=== PATIENT | female | born 2000 | race Caucasian/White ===

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

== ENCOUNTER 2018-10-09 15:08 | Emergency (ER) | payer SELFPAY ==
[2018-10-09] MEDS ORDERED: ONDANSETRON 4 MG/2 ML VIAL IVPB ONE (15:28)
[2018-10-09] MEDS ORDERED: SODIUM CHLORIDE 1,000 ML IV STA (15:29)
[2018-10-09] MEDS ORDERED: ACETAMINOPHEN 1000 MG/100 ML VIAL (NON FORMULARY) IVPB ONE (15:29)
--- NOTE | 2018-10-09 15:39 | PDOC ---
History of Present Illness - General Chief Complaint: Nausea/Vomiting Stated Complaint: NAUSEA,VOMITING Time Seen by Provider: 10/09/18 15:15 - History of Present Illness Initial Comments: 10/09/18 15:34 18 yo F with h/o anxiety who p/w sore throat, vomiting. Patient reports 1 week of progressively, sore throat, and odynophagia. Denies dysphagia, drooling, hoarseness/muffled voice. Pain not improved with honey. Denies losenges, or oral analgesia. Endorses 1 day of non bilious, non bloody emesis x 4. No identifiable triggers or alleviators. + intermittent lightheadedness. Reports RLQ abdominal pain 9 months ago, with nml TVUS. No ovarian cysts or torsion. Perfomed at [facility]. Patient denies F/C, CP, SOB, cough, wheezing, palpitations, urinary complaints , vaginal bleeding/itching/burning, pelvic pain, hematuria, abdominal pain, diarrhea, constipation, BPR, weakness, sensory changes. Patient denies N/V, F,C, CP, SOB, urinary complaints, abdominal pain, diarrhea, constipation, lightheadedness, weakness, sensory changes. PMHx: as noted above. Denies medication use. Surgical Hx: Denies h/o abdominal surgery ROS: as noted SHx: Denies Etoh, IVDA, tobacco use. Recent sick contact sibling viral URI. Allergies: NKDA Past History - Past Medical History Allergies/Adverse Reactions: Allergies Allergy/AdvReac Type Severity Reaction Status Date / Time No Known Allergies Allergy Verified 10/09/18 15:09 Home Medications: Ambulatory Orders Clonazepam [Klonopin] 1 mg PO DAILY 10/09/18 Ondansetron HCl [Zofran] 4 mg PO BID PRN #10 tablet MDD 2 tab 10/09/18 Ondansetron HCl [Zofran] 4 mg PO PRN PRN #10 tablet MDD 2 tab 10/09/18 Asthma: No Cancer: No Cardiac Disorders: No Diabetes: No HTN: No Seizures: No Thyroid Disease: No - Immunization History Immunization Up to Date: Yes - Suicide/Smoking/Psychosocial Hx Smoking Status: No Smoking History: Never smoked Have you smoked in the past 12 months: No Number of Cigarettes Smoked Daily: 0 Hx Alcohol Use: No Drug/Substance Use Hx: No Substance Use Type: None Hx Substance Use Treatment: No Review of Systems - Review of Systems Comments:: 10/09/18 15:39 GENERAL/CONSTITUTIONAL: No fever or chills. No weakness. HEAD, EYES, EARS, NOSE AND THROAT: + Sore throat. No change in vision. No ear pain or discharge. CARDIOVASCULAR: No chest pain or shortness of breath RESPIRATORY: No cough, wheezing, or hemoptysis. GASTROINTESTINAL: + nausea, vomiting. No diarrhea or constipation. GENITOURINARY: No dysuria, frequency, or change in urination. MUSCULOSKELETAL: No joint or muscle swelling or pain. No neck or back pain. SKIN: No rash NEUROLOGIC: + lightheadedness. No headache, vertigo, loss of consciousness, or change in strength/sensation. ENDOCRINE: No increased thirst. No abnormal weight change HEMATOLOGIC/LYMPHATIC: No anemia, easy bleeding, or history of blood clots. ALLERGIC/IMMUNOLOGIC: No hives or skin allergy. *Physical Exam - Physical Exam Comments: 10/09/18 15:40 GENERAL: Awake, alert, and fully oriented, in no acute distress HEAD: No signs of trauma, normocephalic, atraumatic EYES: PERRLA, EOMI, sclera anicteric, conjunctiva clear ENT: + dry muocus membranes. Ertyhematous posterior oropharynx, with absent exudates, cervical adnopathy, Auricles normal inspection, hearing grossly normal , nares patent. NECK: Normal ROM, supple, no lymphadenopathy, JVD, or masses LUNGS: No distress, speaks full sentences, clear to auscultation bilaterally HEART: Regular rate and rhythm, normal S1 and S2, no murmurs, rubs or gallops, peripheral pulses normal and equal bilaterally. ABDOMEN: + RLQ>RUQ abdominal ttp. Soft, NDS, normoactive bowel sounds. No guarding, no rebound. No masses. Neg CVA ttp. PELVIC: Normal appearing external genitalia, with absent lesions. Vaginal vault with absent blood, discharge. Cervical os closed, with absent discharge. Neg CMT on BM. EXTREMITIES : Normal inspection, Normal range of motion, no edema. No clubbing or cyanosis. NEUROLOGICAL: Cranial nerves II through XII grossly intact. Normal speech, normal gait, no focal sensorimotor deficits SKIN: Warm, Dry, normal turgor, no rashes or lesions noted ED Treatment Course - LABORATORY CBC & Chemistry Diagram: 10/09/18 16:18 10/09/18 16:18 Medical Decision Making - Medical Decision Making 10/09/18 15:38 18 yo F with h/o anxiety who p/w sore throat, vomiting.Vitals wnl, AF, A&Ox3. + dry muocus membranes. Ertyhematous posterior oropharynx, with absent exudates. + RLQ> RUQ ttp. Will asses for . Will consider cystitis, ovarian pathology, nephrolithaisis/obstructive uropathy, appendicitis, colitis, biliary dz., gastritis, esophagitis, gastroenteritis. Low suspicion pyelonephritis. Differential also includes strep pharyngitis, viral URI. Low suspicion PNA. Will provide adequate fluid resuscitation, analgesia, and reassess. ED Course: 10/09/18 16:40 UA: Neg HCG: Neg WBC: 12.3 10/09/18 17:15 CMP: Unremarkable TVUS ~ R/o Torsion 10/09/18 18:25 Left ovarian cyst 1.9 cm with internal debris. Patient pain improved Tolerating PO intake. Stable for d/c with return precautions. *DC/Admit/Observation/Transfer Diagnosis at time of Disposition: RLQ abdominal pain - Discharge Dispostion Condition at time of disposition: Stable Decision to Admit order: No - Referrals - Patient Instructions Printed Discharge Instructions: DI for Vomiting -- Adult Additional Instructions: Please return to the emergency department with any new or worsening symptoms or concerns. Please follow up with your primary care physician within 72 hours. - Post Discharge Activity - Attestations Physician Attestion: 10/09/18 16:06 I attest to the information provided in this note.
[2018-10-09 15:52] VITALS: BP 139/97; PULSE 92; TEMP 98.7; BMI 29.2
--- NOTE | 2018-10-09 15:59 | PDOC ---
Attending Attestation - Resident Resident Name: MiquelBrandon - ED Attending Attestation I have performed the following: I have examined & evaluated the patient, The case was reviewed & discussed with the resident, I agree w/resident's findings & plan, Exceptions are as noted - HPI HPI: 10/09/18 15:53 This is a 18 yo F with h/o anxiety who p/w sore throat, nausea and vomiting. Pt has had 1 week of progressively worsening sore throat. Pt has had 1 day of non bilious, non bloody emesis x 4. Since the of her child, she has had intermittent pelvic/abdominal pain which worsens with sexual intercourse No vaginal discharge She was seen by transition manager who did an U/S which was reportedly nml. No fevers or chills - Physicial Exam PE: 10/09/18 15:54 GENERAL: The patient is in no acute distress. EYES: PERRLA, EOMI, sclera anicteric, conjunctiva clear. ENT: Ears normal, nares patent, oropharynx clear without exudates. Moist mucous membranes. NECK: Normal range of motion, supple LUNGS: Breath sounds equal, clear to auscultation bilaterally. No wheezes, and no crackles. HEART:Regular rate and rhythm, normal S1 and S2 without murmur, rub or gallop. ABDOMEN: Soft, RUQ and RLQ tenderness, no abdominal distention EXTREMITIES: Normal range of motion, no edema. NEUROLOGICAL: Cranial nerves II through XII grossly intact. Normal speech. No focal neurological deficits. MUSCULOSKELETAL: Back non-tender to palpation, no CVA tenderness SKIN: Warm, Dry, normal turgor, no rashes or lesions noted. - Medical Decision Making 10/09/18 15:54 Will do: Labs 10/09/18 19:07 Laboratory Tests 10/09/18 10/09/18 10/09/18 16:17 16:18 16:18 WBC Hgb Hct Plt Count BUN Creatinine Lipase 111 Urine Blood Negative Urine Nitrite Negative Ur Leukocyte Esterase Negative Urine HCG, Qual Negative Group A Strep Rapid Negative 10/09/18 10/09/18 16:18 16:18 WBC 12.3 H Hgb 11.5 Hct 35.9 Plt Count 337 BUN 9 Creatinine 0.6 Lipase Urine Blood Urine Nitrite Ur Leukocyte Esterase Urine HCG, Qual Group A Strep Rapid TV US: Left ovarian cyst, no free fluid Will discharge to home Pt to follow up with transition manager for further management of pelvic pain( ?endometriosis?? )
[2018-10-09] MEDS ORDERED: ONDANSETRON 4 MG/2 ML VIAL ONE (16:23)
[2018-10-09] MEDS ORDERED: ACETAMINOPHEN INJECTION 100 ML IVPB ONE (16:23)
[2018-10-09 16:31] LABS: HCG,QUALITATIVE URINE Negative; PH,URINE 8.5 (4.5-8); URINE APPEARANCE Clear; URINE BILIRUBIN Negative (NEGATIVE); URINE COLOR Yellow; URINE GLUCOSE (UA) Negative (NEGATIVE); URINE KETONE Negative (NEGATIVE); URINE LEUK ESTERASE Negative (NEGATIVE); URINE NITRITE Negative (NEGATIVE); URINE PROTEIN Negative (NEGATIVE); URINE UROBILINOGEN 0.2 (0.2-1.0)
[2018-10-09 16:35] LABS: BASO % 0.4 % (0-2.0); EOS % 0.8 % (0-4.5); HEMATOCRIT 35.9 % (32.4-45.2); HEMOGLOBIN 11.5 GM/dl (10.7-15.3); LYMPH % 9.4 % (8-40); MCH 22.2 pg (25.7-33.7); MEAN CELL VOLUME 69.5 fl (80-96); MEAN PLT VOLUME 8.2 fl (7.5-11.1); MONO % 7.4 % (3.8-10.2); PLATELET COUNT 337 K/MM3 (134-434); RBC 5.17 M/mm3 (3.60-5.2); RDW 14.1 % (11.6-15.6); WHITE BLOOD COUNT 12.3 K/mm3 (4.0-10.8)
[2018-10-09 16:38] LABS: ADD RBC MORPHOLOGY YES
[2018-10-09 16:47] LABS: ALBUMIN 4.3 g/dl (3.4-5.0); ALK PHOS 71 U/L (45-117); ANION GAP 6 MMOL/L (8-16); BILIRUBIN,TOTAL 0.8 mg/dl (0.2-1); BLOOD UREA NITROGEN 9 mg/dl (7-18); CALCIUM 8.9 mg/dl (8.5-10); CHLORIDE 103 mmol/L (98-107); CO2 24 mmol/L (21-32); CREATININE 0.6 mg/dl (0.55-1.3); GLUCOSE,RANDOM 84 mg/dl (74-106); POTASSIUM 3.6 mmol/L (3.5-5.1); SGOT/AST 22 U/L (15-37); SGPT/ALT 20 U/L (13-61); SODIUM 133 mmol/L (136-145); TOT PROT 7.4 g/dl (6.4-8.2)
[2018-10-09 20:48] LABS: PLATELET ESTIMATE ADEQUATE
== END 2018-10-09 18:58 | disposition home or self-care (01) ==
LOC: FER 15:08
PROC: 3E033NZ Introduction of Analgesics, Hypnotics, Sedatives into Peripheral Vein, Percutaneous Approach (ICD-10-PCS; principal; 2018-10-09)
PROC: 3E0337Z Introduction of Electrolytic and Water Balance Substance into Peripheral Vein, Percutaneous Approach (ICD-10-PCS; 2018-10-09)
PROC: 3E033GC Introduction of Other Therapeutic Substance into Peripheral Vein, Percutaneous Approach (ICD-10-PCS; 2018-10-09)
DX: R10.31 Right lower quadrant pain (principal); R11.2 Nausea with vomiting, unspecified; N83.202 Unspecified ovarian cyst, left side; F41.9 Anxiety disorder, unspecified
CPT/HCPCS: 36415; 76830-TC; 80053; 81003; 83690; 84703; 85025; 87070; 87077; 87880; 99283-25; J0131; J7030

== ENCOUNTER 2018-10-11 06:47 | Emergency (ER) | payer OTHER ==
[2018-10-11 06:51] VITALS: BMI 29.2
--- NOTE | 2018-10-11 07:04 | PDOC ---
History of Present Illness - General Chief Complaint: Nausea/Vomiting Stated Complaint: FEVER Time Seen by Provider: 10/11/18 07:04 History Source: Patient Exam Limitations: No Limitations - History of Present Illness Initial Comments: 10/11/18 08:03 Pt presents to the ED complaining of a 4 day history of generalized myalgias, sore throat, nasal congestion and runny nose. Also complains of nausea and intermittent non bloody, non billious vomiting. Presented to the ED 3 days ago for same complaint, had rapid strep performed that was negative. Last night, she developed fever. States that she has been unable to tolerate antipyretics or fluids. Denies dysuria or abdominal pain. Does complain of mild bitemporal headache that is worse when moving her head. Denies cough or shortness of breath. Denies rashes. Denies sick contacts. 10/11/18 08:07 10/11/18 08:07 PMH significant only for irritable bowel syndrome. Past History - Past Medical History Allergies/Adverse Reactions: Allergies Allergy/AdvReac Type Severity Reaction Status Date / Time No Known Allergies Allergy Verified 10/11/18 06:47 Home Medications: Ambulatory Orders Clonazepam [Klonopin] 1 mg PO DAILY 10/09/18 Ondansetron HCl [Zofran] 4 mg PO BID PRN #10 tablet MDD 2 tab 10/09/18 Ondansetron HCl [Zofran] 4 mg PO PRN PRN #10 tablet MDD 2 tab 10/09/18 Ondansetron [Zofran Odt -] 4 mg SL TID PRN #8 od.tablet 10/11/18 Asthma: No Cancer: No Cardiac Disorders: No COPD: No Diabetes: No GI Disorders: Yes (IBS) HTN: No Seizures: No Thyroid Disease: No - Immunization History Immunization Up to Date: Yes - Suicide/Smoking/Psychosocial Hx Smoking Status: No Smoking History: Never smoked Have you smoked in the past 12 months: No Number of Cigarettes Smoked Daily: 0 Information on smoking cessation initiated: No Hx Alcohol Use: No Drug/Substance Use Hx: No Substance Use Type: None Hx Substance Use Treatment: No Review of Systems - Review of Systems Able to Perform ROS?: Yes Is the patient limited Swiss proficient: No Constitutional: Yes: Fever, Loss of Appetite, Malaise, Weakness HEENTM: Yes: Throat Pain. No: Eye Pain, Blurred Vision, Tearing, Recent change in vision, Double Vision, Cataracts, Ear Pain, Ocular Prothesis, Ear Discharge, Nose Pain, Nose Congestion, Tinnitus, Nose Bleeding, Hearing Loss, Throat Swelling, Mouth Pain, Dental Problems, Difficulty Swallowing, Mouth Swelling, Other Respiratory: No: Symptoms reported, See HPI, Cough, Orthopnea, Shortness of Breath, SOB with Exertion, SOB at Rest, Stridor, Wheezing, Productive cough, Hemoptysis, Other Cardiac (ROS): Yes: Lightheadedness. No: Symptoms Reported, See HPI, Chest Pain , Edema, Irregular Heart Rate, Palpitations, Syncope, Chest Tightness, Other ABD/GI: Yes: Nausea, Vomiting. No: Abdominal Distended, Abd. Pain w/ defecation , Blood Streaked Bowels, Constipated, Diarrhea, Difficulty Swallowing, Poor Appetite, Poor Fluid Intake, Rectal Bleeding, Indigestion, Abdominal cramping, Tarry Stools, Other : No: Burning, Dysuria, Discharge, Frequency, Flank Pain, Hematuria, Incontinence, Pain, Urgency, Lesions, Other Musculoskeletal: Yes: Muscle Pain Integumentary: No: Bruising, Change in Color, Change in Hair/Nails, Dryness, Erythema, Flushing, Lesions, Lumps, Pallor, Pruritus, Rash Neurological: Yes: Headache, Dizziness. No: Numbness, Paresthesia, Pre- Existing Deficit, Seizure, Tingling, Tremors, Weakness, Unsteady Gait, Ataxia, Other *Physical Exam - Vital Signs Last Vital Signs Temp Pulse Resp BP Pulse Ox 100.3 F H 151 H 20 120/75 98 10/11/18 06:48 10/11/18 06:48 10/11/18 06:48 10/11/18 06:48 10/11/18 06:48 - Physical Exam General Appearance: Yes: Nourished, Appropriately Dressed HEENT: positive: Normal ENT Inspection, TMs Normal, Pharynx Normal Neck: positive: Supple Respiratory/Chest: positive: Lungs Clear, Normal Breath Sounds Cardiovascular: positive: Regular Rate, Tachycardia Gastrointestinal/Abdominal: positive: Flat, Soft Musculoskeletal: positive: Normal Inspection Extremity: positive: Normal Inspection, Normal Range of Motion Integumentary: positive: Normal Color, Dry, Warm Neurologic: positive: Fully Oriented, Alert, Normal Mood/Affect Moderate Sedation - Procedure Monitoring Vital Signs: Procedure Monitoring Vital Signs Temperature 100.3 F H 10/11/18 06:48 Pulse Rate 151 H 10/11/18 06:48 Respiratory Rate 20 10/11/18 06:48 Blood Pressure 120/75 10/11/18 06:48 O2 Sat by Pulse Oximetry (%) 98 10/11/18 06:48 ED Treatment Course - LABORATORY CBC & Chemistry Diagram: 10/11/18 07:25 10/11/18 07:25 Medical Decision Making - Medical Decision Making 10/11/18 08:11 Pt presents to the ED complaining of 4 days of myalgias and sore throat and one day of fever. Tachycardia improved after arrival to 124. Patient is well appearing but appears mildly dehydrated. Most likely viral syndrome. Will give IV fluids, fever and nausea control and check labs. Will consider discharge home if symptoms improve. 10/11/18 09:24 Pt feels improved after IV hydration. Will discharge home with rx for zofran odt and instructions to return if symptoms become worse. *DC/Admit/Observation/Transfer Diagnosis at time of Disposition: Dehydration, Viral syndrome - Discharge Dispostion Disposition: HOME Condition at time of disposition: Good Decision to Admit order: No - Prescriptions Prescriptions: Ondansetron [Zofran Odt -] 4 mg SL TID PRN #8 od.tablet PRN Reason: Nausea - Referrals - Patient Instructions Printed Discharge Instructions: DI for Viral Syndrome Additional Instructions: You came to the ED for body aches, headache and sore throat, which are most likely caused by a virus. You should get plenty of fluids and rest. You can take motrin or tylenol for the pain and fever. You should follow up with your doctor on Sunday if your symptoms have not resolved. You should return immediately to the ED for severe headache, severe nausea, vomiting and dehydration unable to keep liquids down, severe abdominal pain, other new or worsening symptoms. - Post Discharge Activity
[2018-10-11] MEDS ORDERED: SODIUM CHLORIDE 0.9% 500 ML INFUS.BAG IV ONE ×2 (07:05→07:40)
[2018-10-11] MEDS ORDERED: ACETAMINOPHEN 325 MG TABLET (FP) PO ONE (07:06)
[2018-10-11] MEDS ORDERED: ACETAMINOPHEN 1000 MG/100 ML VIAL (NON FORMULARY) IVPB ONE (07:07)
[2018-10-11] MEDS ORDERED: ONDANSETRON 4 MG/2 ML VIAL ONE (07:08)
[2018-10-11] MEDS ORDERED: ACETAMINOPHEN INJECTION 100 ML IVPB ONE (07:08)
[2018-10-11] MEDS ORDERED: ONDANSETRON 4 MG/2 ML VIAL IVPUSH ONE (07:08)
[2018-10-11 07:32] LABS: BASO % 0.3 % (0-2.0); EOS % 0.4 % (0-4.5); HEMATOCRIT 33.4 % (32.4-45.2); HEMOGLOBIN 10.8 GM/dl (10.7-15.3); LYMPH % 4.3 % (8-40); MCH 22.6 pg (25.7-33.7); MCHC 32.4 g/dl (32.0-36.0); MEAN CELL VOLUME 69.7 fl (80-96); MEAN PLT VOLUME 8.2 fl (7.5-11.1); MONO % 7.7 % (3.8-10.2); NEUT % 87.3 % (42.8-82.8); PLATELET COUNT 309 K/MM3 (134-434); RDW 13.7 % (11.6-15.6); WHITE BLOOD COUNT 13.7 K/mm3 (4.0-10.8)
[2018-10-11 08:03] LABS: PH,URINE 8.5 (4.5-8); URINE APPEARANCE Clear; URINE BILIRUBIN Negative (NEGATIVE); URINE COLOR Yellow; URINE GLUCOSE (UA) Negative (NEGATIVE); URINE KETONE Negative (NEGATIVE); URINE LEUK ESTERASE Negative (NEGATIVE); URINE NITRITE Negative (NEGATIVE); URINE PROTEIN Trace (NEGATIVE)
[2018-10-11 08:14] LABS: ALBUMIN 4.1 g/dl (3.4-5.0); ALK PHOS 72 U/L (45-117); ANION GAP 11 MMOL/L (8-16); BILIRUBIN,TOTAL 0.8 mg/dl (0.2-1); BLOOD UREA NITROGEN 7 mg/dl (7-18); CALCIUM 9.1 mg/dl (8.5-10); CHLORIDE 100 mmol/L (98-107); CO2 23 mmol/L (21-32); CREATININE 0.7 mg/dl (0.55-1.3); GLUCOSE,RANDOM 127 mg/dl (74-106); POTASSIUM 4.1 mmol/L (3.5-5.1); SGOT/AST 26 U/L (15-37); SGPT/ALT 21 U/L (13-61); SODIUM 134 mmol/L (136-145); TOT PROT 7.5 g/dl (6.4-8.2)
[2018-10-11 09:35] VITALS: BP 100/62; PULSE 105; TEMP 98.3
[2018-10-11] MEDS ORDERED: IBUPROFEN 600 MG TABLET (FP) PO ONE ×2 (09:39→09:47)
== END 2018-10-11 09:42 | disposition home or self-care (01) ==
LOC: FER 06:47
PROC: 3E033NZ Introduction of Analgesics, Hypnotics, Sedatives into Peripheral Vein, Percutaneous Approach (ICD-10-PCS; principal; 2018-10-11)
PROC: 3E033GC Introduction of Other Therapeutic Substance into Peripheral Vein, Percutaneous Approach (ICD-10-PCS; 2018-10-11)
PROC: 3E0337Z Introduction of Electrolytic and Water Balance Substance into Peripheral Vein, Percutaneous Approach (ICD-10-PCS; 2018-10-11)
DX: E86.0 Dehydration (principal); B34.9 Viral infection, unspecified
CPT/HCPCS: 36415; 80053; 81003; 84703; 85025; 96374; 96375; 99284-25; J0131

== ENCOUNTER 2019-01-06 00:06 | Emergency (ER) | payer OTHER ==
--- NOTE | 2019-01-06 00:13 | PDOC ---
History of Present Illness - General Chief Complaint: Pain, Acute Stated Complaint: BURNING/DISCHARGE TO BOTH EYES Time Seen by Provider: 01/06/19 00:12 History Source: Patient Exam Limitations: No Limitations - History of Present Illness Initial Comments: 01/06/19 00:13 HPI 18 YOF with IBS, seasonal allergies presenting with bilateral eye burning pain, redness and discharge more from left eye x 1 day. symptoms started yesterday, denies trauma. has been using makeup and exacerbated symptoms. she woke up tonight with crusting to her eyes. she currently has URI x 1 week. +sore throat, cough, congestion, but tolerating PO and fluid intake Denies fever, chills, chest pain, SOB, palpitation, dizziness, weakness, N, V, D , abdominal pain, bladder and bowel problems, No sick contacts or travel. = Allergies: seasonal Past Medical History: ibs, allergies Social history: Lives with family. No tobacco, ETOH or drug use. Surgical history: noncontributory Meds: as documented in EMR Review of systems Constitutional: no fevers or chills. HEENT: no headache or dizziness. no ear pain, no tinnitis. No visual/hearing disturbances. no blurry vision or loss. +eye itching, burning and discharge. + sore throat. +congestion CVS: no cp or syncope. Resp: no sob. +cough. Gastrointestinal: no abdominal pain, nausea or vomiting. MUSCULOSKELETAL: No joint pain and swelling. No neck or back pain. SKIN: no redness or skin changes, no discharge, no rash. No wounds. Hematologic: no easy bruising/bleeding. NEUROLOGIC: No headache, dizziness, LOC or altered mental status. No weakness, numbness or tingling. Allergic/Immunologic:+seasonal allergies All other systems reviewed and negative, or as documented in HPI. Physical exam: General: Well appearing, awake and alert, NAD. HEENT: NCAT, PERRL, EOMI, 20/25 visual acuity bilaterally, clear conjunctiva, anicteric, no scleral or ciliary injection, +crusting and stye/scant discharge along medial canthus of left eye. moist mucus membranes, clear oropharynx, no oral lesions.. normal phonation Neck: neck supple, FROM Resp: CTAB, normal and even respirations, no respiratory distress CVS: RRR, no murmurs, 2+ peripheral pulses throughout, no peripheral edema Abdomen: soft, NTND, no peritoneal signs. Back: nontender, normal inspection and ROM MSK: no edema, VALIENTE x4, ROM intact. No clubbing or cyanosis. normal bulk and tone. Neuro: alert Skin: warm and well perfused, cap refill <2 sec, normal color Past History - Past Medical History Allergies/Adverse Reactions: Allergies Allergy/AdvReac Type Severity Reaction Status Date / Time No Known Allergies Allergy Verified 01/06/19 00:08 Home Medications: Ambulatory Orders Clonazepam [Klonopin] 1 mg PO DAILY 10/09/18 Polymyxin B Sulf/Trimethoprim [Polymyxin B-Tmp Eye Drops] 10 ml OP Q4H #10 ml Asthma: No Cancer: No Cardiac Disorders: No COPD: No Diabetes: No GI Disorders: Yes (IBS) HTN: No Seizures: No Thyroid Disease: No - Immunization History Immunization Up to Date: Yes - Suicide/Smoking/Psychosocial Hx Smoking Status: No Smoking History: Never smoked Have you smoked in the past 12 months: No Number of Cigarettes Smoked Daily: 0 Hx Alcohol Use: No Drug/Substance Use Hx: No Substance Use Type: None Hx Substance Use Treatment: No *DC/Admit/Observation/Transfer Diagnosis at time of Disposition: Conjunctivitis Qualifiers: Conjunctivitis type: unspecified Laterality: bilateral Qualified Code(s): H10.9 - Unspecified conjunctivitis - Discharge Dispostion Disposition: HOME Condition at time of disposition: Stable Decision to Admit order: No - Prescriptions Prescriptions: Polymyxin B Sulf/Trimethoprim [Polymyxin B-Tmp Eye Drops] 10 ml OP Q4H #10 ml - Referrals Referrals: Heriberto Davis MD [Primary Care Provider] - - Patient Instructions Printed Discharge Instructions: DI for Conjunctivitis Additional Instructions: do not wear makeup or rub/scratch your eye keep area clean. use the eye drops to affected eye (s) for your infection vs allergies. use 1-2 drops every 4 hours x 5-7 days. if worsening vision symptoms, loss of vision, pain, redness, fever, return sooner. - Post Discharge Activity
[2019-01-06 00:14] VITALS: BP 123/83; PULSE 105; TEMP 98; BMI 28.7
== END 2019-01-06 00:35 | disposition home or self-care (01) ==
LOC: FER 00:06
DX: H10.9 Unspecified conjunctivitis (principal)
CPT/HCPCS: 99281-25

== ENCOUNTER 2019-01-18 00:49 | Emergency (ER) | payer OTHER ==
[2019-01-18 00:55] VITALS: BP 125/81; PULSE 90; TEMP 98.4; BMI 26.5
--- NOTE | 2019-01-18 01:10 | PDOC ---
History of Present Illness - General Chief Complaint: Sore Throat Stated Complaint: SORE THROAT Time Seen by Provider: 01/18/19 01:06 History Source: Patient Exam Limitations: No Limitations - History of Present Illness Initial Comments: 01/18/19 01:15 This is a 18-year-old female who comes in complaining of a sore throat 4 days. Patient said that she had a recent strep throat approximately 2 weeks ago and did not finish her antibiotics. Patient now comes in complaining of a similar sore throat however she denies any fevers, chills, cough, congestion. Allergies: as per nursing notes Past Medical History: none Social history: Lives with family. No smoking. No alcohol. No illicit drugs. Surgical history: None General: No fevers or chills, no weakness, no weight loss HEENT: No change in vision. + sore throat,. No ear pain CardioVascular: no chest discomfort. No shortness of breath Respiratory:No cough, or wheezing. Gastrointestinal: no nausea, vomiting, diarrhea or constipation, No rectal bleeding Genitourinary: No dysuria, hematuria, or frequency Musculoskeletal: No joint or muscle pain or swelling Neurologic: No headache, vertigo, dizziness or loss of consciousness Psychiatric: nor depression Skin: No rashes or easy bruising Endocrine: no increased thirst or abnormal weight change Allergic: no skin or latex allergy All other systems reviewed and normal GENERAL: The patient is awake, alert, and fully oriented, in no acute distress. HEAD: Normal with no signs of trauma. THROAT: There is a small amount of exudate in posterior oropharynx with some mild erythema. There is no submandibular lymphadenopathy. EYES: Pupils equal, round and reactive to light, extraocular movements intact, sclera anicteric, conjunctiva clear. EXTREMITIES:atraumatic, Normal range of motion, no edema. NEUROLOGICAL: Normal speech, normal gait. PSYCH: Normal mood, normal affect. SKIN: Warm, Dry, normal turgor, no rashes or lesions noted. Assessment and plan: This is a 18-year-old female who comes in complaining of several days of a sore throat. Patient had a rapid strep done that was negative. A mono spot was sent and results are pending at the time patient left however did come back as negative after patient was discharged. Patient discharged told to follow-up with her primary care doctor. Past History - Past Medical History Allergies/Adverse Reactions: Allergies Allergy/AdvReac Type Severity Reaction Status Date / Time No Known Allergies Allergy Verified 01/06/19 00:08 Home Medications: Ambulatory Orders Clonazepam [Klonopin] 1 mg PO DAILY 10/09/18 Asthma: No Cancer: No Cardiac Disorders: No COPD: No Diabetes: No GI Disorders: Yes (IBS) HTN: No Psychiatric Problems: Yes Seizures: No Thyroid Disease: No - Immunization History Immunization Up to Date: Yes - Suicide/Smoking/Psychosocial Hx Smoking Status: No Smoking History: Never smoked Have you smoked in the past 12 months: No Number of Cigarettes Smoked Daily: 0 Hx Alcohol Use: No Drug/Substance Use Hx: No Substance Use Type: None Hx Substance Use Treatment: No *Physical Exam - Vital Signs Last Vital Signs Temp Pulse Resp BP Pulse Ox 98.4 F 90 16 125/81 100 01/18/19 00:50 01/18/19 00:50 01/18/19 00:50 01/18/19 00:50 01/18/19 00:50 *DC/Admit/Observation/Transfer Diagnosis at time of Disposition: Acute viral pharyngitis - Discharge Dispostion Disposition: HOME Condition at time of disposition: Stable Decision to Admit order: No - Referrals Referrals: Heriberto Davis MD [Primary Care Provider] - - Patient Instructions Additional Instructions: Your rapid strep was negative however there is a possibility that it was a false negative. The swab will be cultured and if it is positive we will let you know. In addition the mono test won't be available until next week so follow-up with your primary care doctor for the results of that or call the ED and we can give you the results. Return to the emergency department immediately with ANY new, persistent or worsening symptoms. Continue any medications as previously prescribed by your physician. You should follow up with your primary doctor as soon as possible regarding today's emergency department visit. . Please make sure your doctor reviews the results of your emergency evaluation. Thank you for coming to the Emergency Department today for your care. It was a pleasure to see you today. Please note that your evaluation is INCOMPLETE until you follow-up with your doctor. - Post Discharge Activity
[2019-01-18] MEDS ORDERED: IBUPROFEN 600 MG TABLET (FP) PO ONE ×2 (01:30→01:31)
== END 2019-01-18 03:22 | disposition home or self-care (01) ==
LOC: FER 00:49
DX: J02.8 Acute pharyngitis due to other specified organisms (principal); B97.89 Other viral agents as the cause of diseases classified elsewhere; F99 Mental disorder, not otherwise specified; K58.9 Irritable bowel syndrome, unspecified
CPT/HCPCS: 36415; 86308; 87070; 87077; 87880; 99281-25

== ENCOUNTER 2020-10-04 04:26 | Day surgery (SDC) | payer OTHER ==
[2020-10-01 12:29] VITALS: BMI 28.7
[2020-10-04] MEDS ORDERED: PROMETHAZINE HCL 25 MG/1 ML VIAL IVPUSH PRN (11:56)
[2020-10-04] MEDS ORDERED: ONDANSETRON 4 MG/2 ML VIAL IVPUSH PRN (11:56)
[2020-10-04] MEDS ORDERED: oxyCODONE HCL 5 MG TABLET PO PRN (11:56)
[2020-10-04] MEDS ORDERED: LACTATED RINGERS SOLUTION 1,000 ML IV SCH (12:00)
[2020-10-04] MEDS ORDERED: MIDAZOLAM HCL 2 MG/2 ML SINGLE DOSE VIAL ONE (12:47)
[2020-10-04] MEDS ORDERED: PROPOFOL 20 ML ONE (12:51)
[2020-10-04] MEDS ORDERED: SUCCINYLCHOLINE CHLORIDE 200 MG/10 ML SYRINGE ONE (12:52)
[2020-10-04] MEDS ORDERED: oxyCODONE HCL 5 MG TABLET ONE (14:17)
[2020-10-04 15:32] VITALS: TEMP 97.7
[2020-10-04 15:52] VITALS: BP 112/67; PULSE 85
== END 2020-10-04 16:00 | disposition home or self-care (01) ==
LOC: JASU-SURG 04:26
PROVIDERS: ATTEND Obstetrics & Gynecology
PROC: 10D17ZZ Extraction of Products of Conception, Retained, Via Natural or Artificial Opening (ICD-10-PCS; principal; 2020-10-04 10:30)
DX: O03.4 Incomplete spontaneous abortion without complication (principal)
CPT/HCPCS: 94760

== ENCOUNTER 2022-07-23 19:04 | Emergency (ER) | payer OTHER ==
[2022-07-23 19:13] VITALS: BP 129/79; PULSE 98; RESP 18; TEMP 97.8; BMI 27.4
[2022-07-23] MEDS ORDERED: AZITHROMYCIN 500 MG TABLET PO ONE (19:24)
[2022-07-23] MEDS ORDERED: DEXAMETHASONE SOD PHOSPHATE 10 MG/1 ML VIAL IVPUSH ONE (19:24)
== END 2022-07-23 19:30 | disposition home or self-care (01) ==
LOC: FER 19:04
PROC: 3E033NZ Introduction of Analgesics, Hypnotics, Sedatives into Peripheral Vein, Percutaneous Approach (ICD-10-PCS; principal; 2022-07-23)
DX: J03.90 Acute tonsillitis, unspecified (principal)
CPT/HCPCS: 99283-25

== ENCOUNTER 2022-11-23 17:23 | Emergency (ER) | payer OTHER ==
[2022-11-23 17:56] VITALS: BP 119/77; PULSE 91; RESP 18; TEMP 98.3; BMI 27.4
[2022-11-23] MEDS ORDERED: LIDOCAINE HCL 2% (20ML MULTI-DOSE VIAL) ONE (18:23)
== END 2022-11-23 19:37 | disposition home or self-care (01) ==
LOC: FER 17:23
PROC: 2W3FX1Z Immobilization of Left Hand using Splint (ICD-10-PCS; principal; 2022-11-23)
DX: S62.307A Unspecified fracture of fifth metacarpal bone, left hand, initial encounter for closed fracture (principal); W22.8XXA Striking against or struck by other objects, initial encounter
CPT/HCPCS: 73130-TC-LT-FY; 99283-25